=== PATIENT | female | born 2000 | race Caucasian/White ===

== ENCOUNTER 2020-10-22 14:59 | Emergency (ER) | payer MEDICAID ==
[~2020-10-22] VITALS: Ht 165.1 cm; Wt 60.8 kg
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
[2020-10-22] MEDS ORDERED: oxyCODONE/APAP (5/325 MG) 1 UDTAB TABLET PO ONE (15:30)
[2020-10-22] MEDS ORDERED: IBUPROFEN 600 MG TABLET PO ONE (15:30)
[2020-10-22] MEDS ORDERED: oxyCODONE/APAP (5/325 MG) 1 UDTAB TABLET ONE (15:31)
[2020-10-22] MEDS ORDERED: IBUPROFEN 600 MG TABLET ONE (15:31)
--- NOTE | 2020-10-22 16:23 | NUR ---
PENDING FOR CT AND XRAY
[2020-10-22] MEDS ORDERED: IBUP-1955 PO (17:56)
--- NOTE | 2020-10-22 18:22 | NUR ---
Patient discharged to home in stable condition. Written and verbal after care instructions given. Patient verbalizes understanding of instruction.
[2020-10-22 18:23] VITALS: BP 121/66
== END 2020-10-22 18:23 | disposition home or self-care (01) ==
LOC: ER 15:01
DX: S63.591A Other specified sprain of right wrist, initial encounter (principal); S60.222A Contusion of left hand, initial encounter; S60.221A Contusion of right hand, initial encounter; S05.12XA Contusion of eyeball and orbital tissues, left eye, initial encounter; Y04.0XXA Assault by unarmed brawl or fight, initial encounter; Y93.89 Activity, other specified; Y92.89 Other specified places as the place of occurrence of the external cause; Y99.8 Other external cause status
CPT/HCPCS: 70486-TC; 73100-TC; 73120-TC; 84703-TC